=== PATIENT | female | born 1940 | race Caucasian/White ===

== ENCOUNTER → 2016-08-17 09:34 | Outpatient (CLI) | payer MEDICARE, BC | END | disposition home or self-care (01) | LOC: D.RT 08-11 11:00 → D.RAD 08-11 12:00 → D.RT 09:34 | DX: J44.9 Chronic obstructive pulmonary disease, unspecified (principal) ==

== ENCOUNTER → 2016-11-04 12:06 | Outpatient (CLI) | payer MEDICARE, BC | END | disposition home or self-care (01) | LOC: D.RAD 12:06 | DX: J44.9 Chronic obstructive pulmonary disease, unspecified (principal) ==

== ENCOUNTER 2016-12-20 05:49 | Emergency (ER) | payer MEDICARE, BC | END 2016-12-20 08:15 | disposition home or self-care (01) | LOC: D.ER 05:49 | DX: S80.211A Abrasion, right knee, initial encounter (principal); S80.212A Abrasion, left knee, initial encounter; S40.212A Abrasion of left shoulder, initial encounter; S60.512A Abrasion of left hand, initial encounter; S00.81XA Abrasion of other part of head, initial encounter; S01.81XA Laceration without foreign body of other part of head, initial encounter; W01.0XXA Fall on same level from slipping, tripping and stumbling without subsequent striking against object, initial encounter; Y93.89 Activity, other specified; Y92.027 Garden or yard of mobile home as the place of occurrence of the external cause; S63.501A Unspecified sprain of right wrist, initial encounter; J44.9 Chronic obstructive pulmonary disease, unspecified ==

== ENCOUNTER → 2019-03-12 13:38 | Outpatient (CLI) | payer MEDICARE, BC | END | disposition home or self-care (01) | LOC: D.US 13:38 | PROVIDERS: ATTEND Family Medicine | DX: R60.0 Localized edema (principal) ==

== ENCOUNTER → 2020-05-27 11:38 | Outpatient (CLI) | payer MEDICARE, BC ==
--- NOTE | ~2020-05-27 | ST ---
PATIENT:MARY ALBERT MEDICAL RECORD: [id number] SEX: F LOCATION:[facility] ORDER #: ADMISSION DATE: 05/27/20 AGE OF PATIENT: 79 REFERRING PHYSICIAN: INTERPRETING PHYSICIAN: LINNEA JUSTICE MD DATE OF SERVICE: 05/27/2020 NUCLEAR STRESS TEST Gated: Gated is normal, normal wall motion, normal systolic function. SPECT imaging: SPECT imaging was performed. FINDINGS: Short axis view shows good uptake along the anterior wall, lateral wall and inferior wall. Horizontal axis: Horizontal axis confirms good uptake along the anterior wall and inferior wall. Vertical axis: Vertical axis shows good uptake along the lateral wall and septum. FINAL IMPRESSION: 1. Normal gated, normal wall motion, EF 65%. 2. Normal SPECT imaging. The patient is considered low risk for any significant ongoing ischemic coronary artery disease. LV function remains normal. Continued risk factor modification and medical management. TRANSINT:[id number] Voice Confirmation ID: [id number] DOCUMENT ID: [id number] LINNEA JUSTICE MD CC: [id number] DICTATION DATE: 05/28/20851 INCOME TAX MANAGER: 05/28/202112 DEP CLI 05/27/20 [facility] [address] [id number]
== END | disposition home or self-care (01) ==
LOC: D.HCCARDIO 05-26 12:00
PROVIDERS: ATTEND Internal Medicine Interventional Cardiology
DX: I20.9 Angina pectoris, unspecified (principal)

== ENCOUNTER → 2020-08-19 08:00 | Outpatient (CLI) | payer MEDICARE, BC | END | disposition home or self-care (01) | LOC: D.RT 07-24 11:00 → D.RAD 07-24 11:45 → D.RT 08:00 | PROVIDERS: ATTEND Internal Medicine Pulmonary Disease | DX: J44.9 Chronic obstructive pulmonary disease, unspecified (principal); Z20.822 Contact with and (suspected) exposure to COVID-19 ==